=== PATIENT | female | born 1995 | race Caucasian/White ===

== ENCOUNTER 2017-06-13 11:48 | Emergency (ER) | payer OTHER ==
[2017-06-13] MEDS ORDERED: Ondansetron ODT 4 MG TAB ONE (12:42)
[2017-06-13] MEDS ORDERED: Morphine Sulfate 2 MG/ML SYRINGE ONE ×2 (12:54→14:03)
[2017-06-13] MEDS ORDERED: Ketorolac Tromethamine 30 MG/ML VIAL ONE (12:55)
[2017-06-13 13:20] LABS: #Lymphocytes 0.8 thou/uL (1.20-3.40); #Monocytes 0.5 thou/uL (0.11-0.59); #Neutrophils 11.2 thou/uL (1.40-6.50); %Basophils 0.1 % (0.0-1.0); %Eosinophils 0.1 % (0.0-10.0); %Lymphocytes 6.7 % (28.0-48.0); %Monocytes 4.3 % (0.0-4.0); Hematocrit 41.3 % (36.0-47.0); Mean Platelet Volume 8.2 fL (7.4-10.4); Red Blood Cell (RBC) Count 4.46 mill/uL (4.00-5.20); White Blood Cell (WBC) Count 12.6 thou/uL (4.8-10.8)
--- NOTE | 2017-06-13 13:23 | CT ---
CT OF THE BRAIN WITHOUT CONTRAST: INDICATION: Headache with nausea and vomiting. COMPARISON: None. FINDINGS: No acute infarct, hemorrhage, or hydrocephalus is present. The septum pellucidum and third ventricl e are midline. The skull and intracranial soft tissues are unremarkable. IMPRESSION: No acute intracranial abnormality. POS: [facility]
[2017-06-13 13:59] LABS: Lactic Acid - Sepsis 2.8 mmol/L (0.5-2.2)
[2017-06-13 14:02] LABS: ALT (SGPT) 14 U/L (8-55); AST (SGOT) 22 U/L (5-34); Alkaline Phosphatase 40 U/L (40-150); Anion Gap 20 mmol/L (10-20); BUN (Urea Nitrogen) 17 mg/dL (7.0-18.7); Bilirubin, Total 0.5 mg/dL (0.2-1.2); Calc. Creatinine Clearance 0 mL/min (70-130); Calcium 9.6 mg/dL (7.8-10.44); Carbon Dioxide 19 mmol/L (22-29); Chloride 102 mmol/L (98-107); Estimated GFR-MDRD 85; Globulin 3.7 g/dL (2.4-3.5); Protein, Total 8.4 g/dL (6.0-8.3)
--- NOTE | 2017-06-13 14:03 | RAD ---
PA AND LATERAL VIEWS CHEST: HISTORY: Headache, body aches, nausea and vomiting. FINDINGS: The cardiomediastinum is normal. The lungs are expanded and clear. The bony thorax is normal. IMPRESSION: Normal exam. POS: [facility]
[2017-06-13] MEDS ORDERED: diphenhydrAMINE HCl 50 MG/ML 1 ML VIAL ONE (15:04)
[2017-06-13] MEDS ORDERED: Metoclopramide HCl 10 MG/2 ML VIAL ONE (15:04)
[2017-06-13 15:33] LABS: Bilirubin Negative (Negative); Blood, Urine Large (Negative); Glucose, Urine (Dipstick) Negative (Negative); Ketone, Urine 80 mg/dL (Negative); Nitrite Negative (Negative); Protein, Urine (Dipstick) 30 mg/dL (Neg-Trace); Urobilinogen 0.2 mg/dL (0.2-1.0)
[2017-06-13 15:35] LABS: Bacteria/HPF None Seen HPF (None Seen); Hyaline Casts/LPF 7-10 HYALINE CAST LPF (0-3 Hyaline)
[2017-06-13 15:43] LABS: Transitional Epithelial 0-3 HPF (0-3); Yeast-All Forms None Seen HPF (None Seen)
[2017-06-13 16:24] LABS: Anion Gap 8 mmol/L (-14-95); T. Carbon Dioxide 19.7 mmol/L (1.0-85.0); pH (Venous) 7.429 (7.35-7.45); vO2 Saturation-calc 99.3 % (0.0-100.0)
[2017-06-13] MEDS ORDERED: Fentanyl 100 MCG/2 ML VIAL ONE (16:56)
== END 2017-06-13 18:16 | disposition home or self-care (01) ==
LOC: ERS 11:48
DX: B34.9 Viral infection, unspecified (principal)
CPT/HCPCS: 36415; 70450; 71020; 80053; 81003; 81015; 82330; 82803; 83605; 85025; 87040; 87081; 87149; 87430; 96361; 96374; 96375; 96376; J1200; J1885; J2270; J2765; J3010; Q0162